=== PATIENT | female | born 1985 | race Caucasian/White ===

== ENCOUNTER 2017-11-18 08:00 | Outpatient (CLI) | payer BC, OTHER | END 2017-11-18 08:01 | disposition home or self-care (01) | LOC: LAB.R 08:00 | PROVIDERS: ATTEND Family Medicine | DX: M54.9 Dorsalgia, unspecified (principal) | CPT/HCPCS: 87086 ==

== ENCOUNTER 2021-07-07 17:15 | Outpatient (CLI) | payer OTHER ==
--- NOTE | 2021-07-08 10:16 | XRAY Report ---
PROCEDURE: Forearm LT INDICATIONS: INJURY OF LEFT FOREARM TECHNIQUE: 2 views of the forearm were acquired. COMPARISON: None. FINDINGS: Bones: No fractures or dislocations. No suspicious bony lesions. Soft tissues: No suspicious soft tissue calcifications or masses. IMPRESSION: 1. No fracture or dislocation. Reviewed by: Yuri Wilkerson MD on 07/08/2021 9:15 AM [facility] Approved by: Yuri Wilkerson MD on 07/08/2021 9:15 AM [facility] Station ID: [id number]
== END 2021-07-07 17:16 | disposition home or self-care (01) ==
LOC: DI 17:15
PROVIDERS: ATTEND Internal Medicine
DX: S59.912A Unspecified injury of left forearm, initial encounter (principal)

== ENCOUNTER 2023-02-05 17:15 | Outpatient (CLI) | payer OTHER ==
--- NOTE | 2023-02-05 18:34 | XRAY Report ---
PROCEDURE: Chest 2 View X-Ray INDICATIONS: R05.9 COUGH TECHNIQUE: 2 views of the chest were acquired. COMPARISON: None. FINDINGS: Surgical changes and devices: None. Lungs and pleura: No pleural effusions or pneumothorax. Lungs are clear. Mediastinum: Mediastinal contours appear normal. Heart size is normal. Bones and chest wall: No suspicious bony lesions. Overlying soft tissues appear unremarkable. IMPRESSION: No acute cardiopulmonary process. No focal airspace disease. Reviewed by: Antonio Villanueva MD on 02/05/2023 6:33 PM PDT Approved by: Antonio Villanueva MD on 02/05/2023 6:33 PM PDT Station ID: [id number]
== END 2023-02-05 17:16 | disposition home or self-care (01) ==
LOC: DI 17:15
PROVIDERS: ATTEND Internal Medicine
DX: R05.9 Cough, unspecified (principal)

== ENCOUNTER 2023-05-01 21:34 | Outpatient (CLI) | payer OTHER | END 2023-05-01 23:59 | disposition EMS.NT | LOC: EMS 21:34 | DX: S61.431A Puncture wound without foreign body of right hand, initial encounter (principal); W54.0XXA Bitten by dog, initial encounter ==